=== PATIENT | female | born 1950 | race Caucasian/White ===

== ENCOUNTER 2018-06-14 19:42 | Inpatient (IN) | payer MEDICARE, OTHER ==
[~2018-06-14] VITALS: Ht 154.9 cm; Wt 66.7 kg
[2018-06-14] MEDS ORDERED: FLUV100T3 PO (20:31)
[2018-06-14] MEDS ORDERED: CLON1TAB5 PO (20:31)
[2018-06-14] MEDS ORDERED: ESCI20TA37 PO (20:31)
[2018-06-14] MEDS ORDERED: CLON-418 PO (20:31)
[2018-06-14] MEDS ORDERED: LAMO150T PO (20:31)
[2018-06-14] MEDS ORDERED: LEVO500T2 PO (20:36)
--- NOTE | 2018-06-14 21:18 | NUR ---
Pt. admitted to MHU, under care of Dr. TIM/MERCEDEZ. Diagnosis: Psychosis Belongs List completed. MRSA swab done. report given to Cate KIM.
--- NOTE | 2018-06-14 21:50 | NUR ---
67 Y.O FEMALE BROUGHT TO MHU VIA WHEELCHAIR FROM [facility]. PT ADMITTED IN A 5150 FOR GD. ACCORDING TO THE HOLD, PT MEETING CRITERIA OF UNABLE TO DO SELF-CARE ON HER HOME WHERE SHE LIVES ALONE. RN CONCURS WITH THE HOLD. ADVISEMENT AND PATIENT RIGHTS HANDBOOK GIVEN. UPON FACE TO FACE ASSESSMENT. PT APPEARS TO REFLECT WHAT IS ON THE HOLD. PT IS A+OX2, AND COOPERATIVE WITH ASSESSMENT. PT CRYING DURING THE INTERVIEW AND WOULD SMILE AND GIGGLE . PT AGREED TO CONTRACT FOR SAFETY INSIDE THE HOSPITAL. PT GAVE VERBAL PERMISSION AND ALSO SIGNED THE PAPER TO RICHARD DOUGHERTY AND MACIEJ DOUGHERTY. PT EXHIBITS INCONGRUENT AFFECT, POOR EYE CONTACT. PT APPEARS UNKEMPT AND HER SKIN IS INTACT. AND DR.OLEG OCONNELL NOTIFIED OF ADMISSION,ORDERS RECEIVED.MCC ASSESSMENT DONE. PT ORIENTED TO UNIT AND EDUCATED ON UNIT RULES. CONTRABAND (MEDICATION )SENT TO THE PHARMACY. HER [place] ID IS ON OUR SECURITY LOCKER IN THE UNIT. VS STABLE. NO AGGRESSIVE BEHAVIOR.
[2018-06-14] MEDS ORDERED: MAGNESIUM HYDROXIDE 30 ML LIQUID UDC PO PRN (22:15)
[2018-06-14] MEDS ORDERED: MAG HYDROX/AL HYDROX/SIMETH 30 ML LIQUID UDC PO PRN (22:15)
[2018-06-14] MEDS: CLONAZEPAM 0.5 MG TABLET PO PRN (23:04)
[2018-06-15] MEDS: TEMAZEPAM 7.5 MG CAPSULE PO PRN (00:18)
[2018-06-15 04:00] VITALS: BP 148/52
[2018-06-15] MEDS: CLONAZEPAM 0.5 MG TABLET PO PRN (06:28)
--- NOTE | 2018-06-15 06:42 | NUR ---
PT SLEPT 5 HOURS. PT SHOWS NO SIGNS OF DISTRESS. PRESCRIBED MEDICATION GIVEN AND PT TOLERATED IT WELL.PT COOPERATIVE WITH CARE. PT SHOWING CRYING AND THEN SMILING. PT NEEDS REORIENTATION, REDIRECTION AND DISTRACTION. SAFETY AND COMFORT PROVIDED. WILL ENDORSE TO DAYSHIFT NURSE FOR CONTINUITY OF CARE .
[2018-06-15 07:30] VITALS: BP 119/57
[2018-06-15] MEDS ORDERED: LAMOTRIGINE 100 MG TABLET PO SCH (10:30)
[2018-06-15] MEDS ORDERED: Medication Not On Formulary EA (Lamotrigine 1 TAB) PO SCH (10:30)
[2018-06-15] MEDS ORDERED: FLUVOXAMINE MALEATE 150 MG PO SCH (15:00)
--- NOTE | 2018-06-15 15:20 | NUR ---
Initial Discharge Note: Patient currently lives alone in [facility][[address] [place] [address]]. According to the daughter, Hilaria [[phone]], the patient has a "caregiver" who checks in on patient whom also lives in [facility]. Per patient, she would like to return to her home when ready for discharge. Per PT evaluation, patient may benefit from a SNF or home health if returning home. developmental services worker will continue to monitor patient and follow-up with PT on best plan for discharge. developmental services worker will collaborate with patient, patient daughter, and MD on a safe and proper discharge.
--- NOTE | 2018-06-15 16:05 | NUR ---
Activity Group Note: Patients engaged in listening to music of their choice while coloring a picture print available to them. Patients were asked to engage with their peers to discuss the music or their pictures. Subjective: "I like this song....I like a lot of different artists like Arielle Gillis." Objective: Patient seemed eager to participate in the group activity. She engaged and initiated conversation with her peers. Patient asked to see other patient's work. Patient demonstrated some irritability when several patients were talking at the same time. Assessment: Patient will need assistance in developing coping strategies when she cannot control her surroundings. Plan: Encourage group attendance as scheduled. Engineering Recruiter will continue to provide encouragement and support in helping the patient engage in group activities.
[2018-06-15 16:10] VITALS: BP 115/49
[2018-06-15] MEDS ORDERED: Medication Not On Formulary EA (Clonidine HCl (Clonidine HCl ER) 0.1 MG) PO SCH (17:00)
[2018-06-15] MEDS: CLONIDINE HCL 0.1 MG TABLET PO SCH (17:00)
[2018-06-15] MEDS ORDERED: IPRATROPIUM BROMIDE 0.5 MG/2.5 ML NEBU NEB PRN (17:30)
[2018-06-15] MEDS ORDERED: ALBUTEROL SULFATE 2.5 MG/3 ML NEBU NEB PRN (17:30)
[2018-06-15 21:41] VITALS: BP 116/56
[2018-06-16] MEDS: ACETAMINOPHEN 325 MG TABLET PO PRN (03:11)
[2018-06-16 06:53] LABS: BASOPHILS % (AUTO) 0.7 % (0.0-2.0); EOSINOPHILS # (AUTO) 0.2 K/uL (0.0-0.7); HEMATOCRIT 36.8 % (31.2-41.9); HEMOGLOBIN 12.1 g/dL (10.9-14.3); LYMPHOCYTES # (AUTO) 2.1 K/uL (20.0-40.0); LYMPHOCYTES % (AUTO) 34.1 % (20.5-51.5); MEAN CORPUSCULAR HEMOGLOBIN 27.9 uug (24.7-32.8); MEAN CORPUSCULAR HGB CONC 33 g/dL (32.3-35.6); MEAN CORPUSCULAR VOLUME 84.8 fL (75.5-95.3); MONOCYTES # (AUTO) 0.4 K/uL (2.0-10.0); MONOCYTES % (AUTO) 6.3 % (0.0-11.0); NEUTROPHILS # (AUTO) 3.4 K/uL (1.8-8.9); NEUTROPHILS % (AUTO) 55.9 % (38.5-71.5); PLATELET COUNT (AUTO) 408 K/uL (179-408); RED BLOOD CELL COUNT(AUTO) 4.34 MIL/uL (3.63-4.92); WHITE BLOOD COUNT (AUTO) 6.1 K/uL (3.8-11.8)
[2018-06-16 07:11] LABS: BILIRUBIN,TOTAL 0.4 mg/dL (0.2-1.0); CREATININE 1.1 mg/dL (0.6-1.3); MAGNESIUM 2.2 mg/dL (1.8-2.4); PHOSPHOROUS 3.3 mg/dL (2.5-4.9); POTASSIUM 4.2 mmol/L (3.5-5.1); TOTAL PROTEIN, SERUM 6.8 g/dL (6.4-8.2)
[2018-06-16 07:20] LABS: THYROID STIMULATING HORMONE 1.883 mIU/mL (0.358-3.740)
[2018-06-16 07:30] VITALS: BP 117/54
[2018-06-16] MEDS: FLUVOXAMINE MALEATE 50 MG TABLET PO SCH (08:47)
[2018-06-16] MEDS: CLONIDINE HCL 0.1 MG TABLET PO SCH ×2 (08:48→17:00)
[2018-06-16] MEDS ORDERED: LEVOFLOXACIN 500 MG TABLET PO SCH (09:00)
[2018-06-16] MEDS ORDERED: AZITHROMYCIN 250 MG TABLET PO ONE (11:45)
[2018-06-16 16:14] VITALS: BP_SYST 107
[2018-06-16 19:53] VITALS: BP 103/36
--- NOTE | 2018-06-16 20:00 | NUR ---
RECEIVED PATIENT IN THE HALLWAY, HE IS NOTED A/O X 3. SHE IS ABLE TO AMBULATE WITH STEADY GAIT WITH THE AID OF A WALKER. SHE IS NOTED WITH LOW MOOD, BLUNTED AFFECT. SHE DENIES ANY THOUGHT TO HARM SELF, DENIES HI. DENIES AH/VH. SHE IS NOTED WITH FAIR INSIGHT TO THE REASON FOR HER ADMISSION TO MHU. SAFETY WAS EMPHASIS, WILL CONTINUE TO MONITOR.
[2018-06-16] MEDS: LAMOTRIGINE 100 MG TABLET PO SCH (20:37)
[2018-06-17 07:30] VITALS: BP 113/56
[2018-06-17] MEDS: FLUVOXAMINE MALEATE 50 MG TABLET PO SCH (08:28)
[2018-06-17] MEDS: CLONIDINE HCL 0.1 MG TABLET PO SCH ×2 (08:28→16:53)
[2018-06-17] MEDS: AZITHROMYCIN 250 MG TABLET PO SCH (12:05)
[2018-06-17] MEDS: ACETAMINOPHEN 325 MG TABLET PO PRN ×2 (12:10→19:56)
[2018-06-17 15:48] VITALS: BP 103/26
[2018-06-17 16:14] VITALS: BP 101/45
--- NOTE | 2018-06-17 16:23 | NUR ---
Activity Group Note: GOAL Patient will actively participate in the group activity of the day or relax in the activity room with fellow patients. INTERVENTION Salesperson Furs invited patient to participate in a group activity consisting of music, books puzzles and arts & crafts held from 2 -2:45 pm in the activities room. RESPONSE Patient expressed interest in participating in arts and crafts. Patient stated she wanted a large picture to color, as it is hard for her to see. Pt engaged in a coloring activity. Patient had minimal interaction with peers. Patients mood was within normal limits and remained cooperative during the activity. PLAN Patient will be invited to attend the next group activity.
--- NOTE | 2018-06-17 17:48 | NUR ---
Patient felt much better after c/o lower back pain. Prn medication administered x1 with relief. Call light within reach. No SI noted. Call light within reach. will monitor.
[2018-06-17] MEDS: CLONAZEPAM 0.5 MG TABLET PO PRN (19:51)
[2018-06-17 19:58] VITALS: BP 108/30
[2018-06-17] MEDS: LAMOTRIGINE 100 MG TABLET PO SCH (20:04)
[2018-06-18 07:30] VITALS: BP 125/46
[2018-06-18] MEDS: FLUVOXAMINE MALEATE 50 MG TABLET PO SCH (08:13)
[2018-06-18] MEDS: CLONIDINE HCL 0.1 MG TABLET PO SCH ×2 (08:14→16:19)
[2018-06-18] MEDS: AZITHROMYCIN 250 MG TABLET PO SCH (11:00)
--- NOTE | 2018-06-18 15:10 | NUR ---
Patient is compliant with all her medication. Redirectable. Able to express needs. Call light within reach. No SI noted. Attended group activity. Bed in low and locked position.
[2018-06-18 15:17] VITALS: BP 110/46
[2018-06-18 20:03] VITALS: BP 114/51
[2018-06-18] MEDS: LAMOTRIGINE 100 MG TABLET PO SCH (21:13)
--- NOTE | 2018-06-19 05:27 | NUR ---
Pt is A & O x3, calm, cooperative, med-compliant, cognizant, pt expresses concern about still having her part-time job once she is released from the hospital. Pt also expresses concern about not being on her home meds, consisting of lexapro and other medications. Pt is afraid that she will decompensate to her past OCD behavior because she is off of her home meds. I will endorse to day shift nurse to f/u.
[2018-06-19 07:52] VITALS: BP 127/49
[2018-06-19] MEDS: ACETAMINOPHEN 325 MG TABLET PO PRN (08:02)
[2018-06-19] MEDS: FLUVOXAMINE MALEATE 50 MG TABLET PO SCH (08:02)
[2018-06-19] MEDS: CLONIDINE HCL 0.1 MG TABLET PO SCH ×2 (08:02→17:13)
[2018-06-19] MEDS: AZITHROMYCIN 250 MG TABLET PO SCH (11:01)
[2018-06-19] MEDS: DOCUSATE SODIUM 100 MG CAPSULE PO PRN (14:40)
[2018-06-19 15:38] VITALS: BP 139/66
[2018-06-19 20:11] VITALS: BP 114/47
[2018-06-19] MEDS: LAMOTRIGINE 100 MG TABLET PO SCH (21:08)
[2018-06-19 23:47] LABS: *BILIRUBIN,URIN NEGATIVE (NEGATIVE); *BLOOD, URINE Trace-intact (NEGATIVE); *CLARITY,URINE CLEAR (CLEAR); *COLOR,URINE YELLOW (YELLOW); *KETONES,URINE NEGATIVE (NEGATIVE); *PROTEIN,URINE NEGATIVE (NEGATIVE); *UROBILINOGEN,URINE 0.2 E.U./dl (NORMAL); LEUKOCYTE ESTERASE ,URINE NEGATIVE (NEGATIVE); NITRITE, URINE NEGATIVE (NEGATIVE); UGLUCOSE NEGATIVE (NEGATIVE)
[2018-06-20 00:05] LABS: BACTERIA,URINE NONE SEEN /HPF (NONE SEEN); RBC,URINE 0-3 /HPF (0-3); RENAL EPITHELIAL CELLS,URINE FEW /LPF (NONE SEEN); SQUAMOUS EPITHELIAL CELL,UR MODERATE /HPF (NONE SEEN); TRANSITIONAL EPI CELLS,URINE FEW /LPF (NONE SEEN); WBC,URINE 0-3 /HPF (0-3)
[2018-06-20 07:30] VITALS: BP 132/50
[2018-06-20 08:07] LABS: BASOPHILS # (AUTO) 0.1 K/uL (0.0-8.0); BASOPHILS % (AUTO) 1.3 % (0.0-2.0); EOSINOPHILS # (AUTO) 0.2 K/uL (0.0-0.7); EOSINOPHILS % (AUTO) 3.5 % (0.0-7.0); HEMATOCRIT 38.4 % (31.2-41.9); HEMOGLOBIN 12.4 g/dL (10.9-14.3); LYMPHOCYTES # (AUTO) 2.4 K/uL (20.0-40.0); LYMPHOCYTES % (AUTO) 41.1 % (20.5-51.5); MEAN CORPUSCULAR HEMOGLOBIN 27.6 uug (24.7-32.8); MEAN CORPUSCULAR HGB CONC 32 g/dL (32.3-35.6); MEAN CORPUSCULAR VOLUME 85.2 fL (75.5-95.3); MONOCYTES # (AUTO) 0.3 K/uL (2.0-10.0); NEUTROPHILS # (AUTO) 2.9 K/uL (1.8-8.9); NEUTROPHILS % (AUTO) 49.1 % (38.5-71.5); PLATELET COUNT (AUTO) 306 K/uL (179-408); RED BLOOD CELL COUNT(AUTO) 4.51 MIL/uL (3.63-4.92); WHITE BLOOD COUNT (AUTO) 5.9 K/uL (3.8-11.8)
[2018-06-20 08:18] LABS: CREATININE 0.9 mg/dL (0.6-1.3); PHOSPHOROUS 3.3 mg/dL (2.5-4.9); POTASSIUM 4.2 mmol/L (3.5-5.1)
[2018-06-20] MEDS: CLONIDINE HCL 0.1 MG TABLET PO SCH ×2 (09:37→17:00)
[2018-06-20] MEDS: FLUVOXAMINE MALEATE 50 MG TABLET PO SCH (09:37)
[2018-06-20] MEDS: AZITHROMYCIN 250 MG TABLET PO SCH (12:57)
--- NOTE | 2018-06-20 15:31 | NUR ---
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
[2018-06-20 16:00] VITALS: BP 100/53
[2018-06-20 20:00] VITALS: BP 116/47
--- NOTE | 2018-06-20 20:00 | NUR ---
RECEIVED PATIENT IN THE DAY ROOM WATCHING TV. SHE IS NOTED A/O X 3. SHE IS ABLE TO AMBULATE WITH STEADY GAIT. DENIES SI, DENIES AV/VH SHE IS ABLE TO CFS. SAFETY WAS EMPHASIS. WILL CONTINUE TO MONITOR,
[2018-06-20] MEDS: LAMOTRIGINE 100 MG TABLET PO SCH (21:05)
[2018-06-21] MEDS: TEMAZEPAM 7.5 MG CAPSULE PO PRN (00:03)
[2018-06-21 07:30] VITALS: BP 108/49
[2018-06-21] MEDS: FLUVOXAMINE MALEATE 50 MG TABLET PO SCH (08:11)
[2018-06-21] MEDS: ACETAMINOPHEN 325 MG TABLET PO PRN (08:12)
[2018-06-21 08:49] VITALS: BP 108/49
[2018-06-21] MEDS: CLONIDINE HCL 0.1 MG TABLET PO SCH (08:49)
--- NOTE | 2018-06-21 11:36 | NUR ---
Discharge Note: Patient will be discharged back home today [[address], [address] [place] [address]; [phone]] via private transportation at 2pm. Patients friend, Carrie Ponce ([phone]) will be providing transportation for the patient. Spoke with patients daughter, Hilaria ([phone]) who is aware and agreeable with discharge plans. Patient is alert and oriented x3, denies SI/HI, and is agreeable with discharge plans. Patient will continue to follow-up with her Primary Care Physician, Dr. Jonathan Cardenas [[address] [place] [address]; [phone]]. Patient will also continue to follow-up with her outpatient Psychiatrist, Dr. Jimmie Olivia [[address], [place] [address]; [phone]]. Per request, pt was provided with a list of Medicare-accepting Psychiatrists in her area. A Home Health Order for home safety evaluation, medication management, and [facility] (ph. [phone]; fax [phone]). Spoke with Laurie in intake, and she reports she will call this specifications writer about patients acceptance and start of care date. Patient was provided with outpatient mental health resources to [facility] , Elli Leon , and the National Suicide Prevention Lifeline . Addendum: 06/21/18 at 1213 by ALLISON MENDOZA Received call from Laurie rizzo [facility] ([phone]) who stated that patient was accepted for Home Health with a Start of Care on 06/22/18.
[2018-06-21] MEDS: DOCUSATE SODIUM 100 MG CAPSULE PO PRN (13:38)
--- NOTE | 2018-06-21 15:00 | NUR ---
Pt is being discharged home and being picked up by her friend Carrie Rodriguez. Pt is A./O x 4, agreeing to go. No distress noted. Discharge instructions are given including following up with a psychiatrist. Pt verbalizes understanding.
--- NOTE | 2018-06-23 15:02 | NUR ---
Social Service Note: crop supervisor, Pearl, received a voicemail left by the patient stating that she "needed to speak with her psychiatrist" and that it was an "emergency". Pearl relayed message to , who called patient back at home phone number [[phone]]. Data Quality Consultant was unable to reach patient, but left a voicemail with direct phone number for patient to call back. Data Quality Consultant also instructed patient to go to emergency room if she was in fact experiencing a medical or psychiatric emergency.
== END 2018-06-21 15:00 | disposition home health service (06) | DRG 885 ==
LOC: ER 19:45 → GPS 21:26
PROVIDERS: ADMIT Psychiatry & Neurology Psychiatry; ATTEND Internal Medicine
DX: F31.64 Bipolar disorder, current episode mixed, severe, with psychotic features (principal); E44.0 Moderate protein-calorie malnutrition; F42.9 Obsessive-compulsive disorder, unspecified; Z87.01 Personal history of pneumonia (recurrent); Z68.27 Body mass index [BMI] 27.0-27.9, adult; F41.9 Anxiety disorder, unspecified; K59.00 Constipation, unspecified; R73.03 Prediabetes
CPT/HCPCS: 36415; 71045; 83735; 84100; 84443; 85025; 87086; A4663; Q0144

== ENCOUNTER 2019-10-02 10:34 | Inpatient (IN) | payer MEDICARE, OTHER ==
[~2019-10-02] VITALS: Ht 160 cm; Wt 72.6 kg
[2019-10-02] MEDS ORDERED: ONDANSETRON 4 MG/2 ML VIAL IV ONE (10:45)
[2019-10-02] MEDS ORDERED: IV NORMAL SALINE 1000 ML BAG IV ONE (10:45)
[2019-10-02] MEDS ORDERED: MECLIZINE HCL 25 MG TABLET PO ONE (10:45)
--- NOTE | 2019-10-02 10:52 | NUR ---
MEDICATION LIST PER PT RECALL.
[2019-10-02 11:15] LABS: BASOPHILS % (AUTO) 0.4 % (0.0-2.0); EOSINOPHILS % (AUTO) 0.2 % (0.0-7.0); HEMATOCRIT 37.2 % (31.2-41.9); HEMOGLOBIN 12.3 g/dL (10.9-14.3); LYMPHOCYTES # (AUTO) 0.9 K/uL (20.0-40.0); LYMPHOCYTES % (AUTO) 7.6 % (20.5-51.5); MEAN CORPUSCULAR HEMOGLOBIN 27.8 uug (24.7-32.8); MEAN CORPUSCULAR HGB CONC 33 g/dL (32.3-35.6); MEAN CORPUSCULAR VOLUME 84.1 fL (75.5-95.3); MONOCYTES # (AUTO) 0.3 K/uL (2.0-10.0); MONOCYTES % (AUTO) 2.8 % (0.0-11.0); NEUTROPHILS # (AUTO) 10.7 K/uL (1.8-8.9); PLATELET COUNT (AUTO) 222 K/uL (179-408); RED BLOOD CELL COUNT(AUTO) 4.42 MIL/uL (3.63-4.92)
[2019-10-02 11:22] LABS: CREATININE 1.1 mg/dL (0.6-1.3); POTASSIUM 3.6 mmol/L (3.5-5.1)
[2019-10-02 11:27] LABS: BILIRUBIN,TOTAL 0.3 mg/dL (0.2-1.0); TOTAL PROTEIN, SERUM 7.5 g/dL (6.4-8.2)
[2019-10-02] MEDS ORDERED: DIAZEPAM 10 MG/2 ML DISP.SYRIN IV ONE (11:45)
[2019-10-02] MEDS ORDERED: MECLIZINE HCL 25 MG TABLET ONE (11:51)
[2019-10-02] MEDS ORDERED: DIAZEPAM 2 MG TABLET ONE (11:52)
[2019-10-02] MEDS ORDERED: ONDANSETRON 4 MG/2 ML VIAL ONE (11:52)
[2019-10-02] MEDS ORDERED: ASPIRIN 325 MG TABLET ONE (11:57)
[2019-10-02] MEDS ORDERED: DIAZEPAM 2 MG TABLET PO ONE (12:00)
[2019-10-02] MEDS ORDERED: ASPIRIN 325 MG TABLET PO ONE (12:00)
--- NOTE | 2019-10-02 12:03 | NUR ---
Paged [employer] for pt's admin, awaiting call back.
--- NOTE | 2019-10-02 12:32 | NUR ---
TRANSFERED PT TO FLOOR INSTABLE CONDITION.
[2019-10-02 12:41] VITALS: BP 101/54
[2019-10-02] MEDS ORDERED: ONDANSETRON 4 MG/2 ML VIAL IV PRN (14:30)
[2019-10-02] MEDS ORDERED: MAGNESIUM HYDROXIDE 30 ML LIQUID UDC PO PRN (14:30)
[2019-10-02] MEDS ORDERED: Z GUARD REMEDY PASTE 57 GM TUBE TOP PRN (14:30)
[2019-10-02 15:55] LABS: PHOSPHOROUS 2.7 mg/dL (2.5-4.9)
[2019-10-02 16:02] LABS: *BILIRUBIN,URIN NEGATIVE (NEGATIVE); *CLARITY,URINE CLEAR (CLEAR); *COLOR,URINE YELLOW (YELLOW); *KETONES,URINE NEGATIVE (NEGATIVE); *UROBILINOGEN,URINE 0.2 E.U./dl (NORMAL); LEUKOCYTE ESTERASE ,URINE NEGATIVE (NEGATIVE); NITRITE, URINE NEGATIVE (NEGATIVE); PH,URINE 5.5 (5.0-8.0); UGLUCOSE NEGATIVE (NEGATIVE)
[2019-10-02 16:03] LABS: *BLOOD, URINE NEGATIVE (NEGATIVE)
[2019-10-02 16:05] VITALS: BP 125/66
[2019-10-02 16:11] LABS: *AMPHETAMINE, URINE NEGATIVE (NEGATIVE); *BARBITURATE, URINE NEGATIVE (NEGATIVE); *CANNABINOID, URINE NEGATIVE (NEGATIVE); *COCCAINE, URINE NEGATIVE (NEGATIVE); *OPIATE, URINE NEGATIVE (NEGATIVE); *PHENCYCLIDINE SCREEN,URINE NEGATIVE (NEGATIVE)
--- NOTE | 2019-10-02 19:12 | NUR ---
Patient received from ER around 1240 patient in stable condition with stable vital signs; patient family at bedside towards end of shift ; patient very shaky ; Md notified ; strait cath done for urine sample. admission finished. Report given on coming nurse.
--- NOTE | 2019-10-02 19:45 | NUR ---
PATIENT ALERT ORIENTED NO SOB NO CHEST PAIN, TELE MONITOR SINUS RHYTHM, SINUS TACHY. PATIENT HAS ANXIETY MB RESTLESSNESS WHILE IN BED, PATIENT GIVEN FOOD AND JUICES, KEPT CLEAN AND DRY, CONT TO MONITOR.
[2019-10-02] MEDS: ACETAMINOPHEN 325 MG TABLET PO PRN (20:03)
[2019-10-02] MEDS: IV NS 1000 ML 1,000 ML IV PRN (20:29)
[2019-10-02] MEDS: ATORVASTATIN 10 MG TABLET PO SCH (20:34)
[2019-10-02] MEDS: METOPROLOL TARTRATE 25 MG TABLET PO SCH (20:51)
[2019-10-02 20:52] VITALS: BP 112/66
[2019-10-02] MEDS ORDERED: LAMOTRIGINE 25 MG TABLET PO SCH (21:00)
[2019-10-02] MEDS ORDERED: LAMOTRIGINE 200 MG TABLET PO SCH (21:00)
--- NOTE | 2019-10-02 22:18 | NUR ---
PATIENT HAVING LOTS OF ANXIETY, RESTLESSNESS IN BED, NOTIFY CHRISTINE CERVANTES CHEMICALS FERMENTATION OPERATOR WITH ORDER OF ATIVAN IV PRN.
[2019-10-02] MEDS: LORAZEPAM 2 MG/1 ML VIAL IV PRN (22:29)
[2019-10-03] VITALS (8 sets, daily range): BP systolic 95–117; BP diastolic 46–62
[2019-10-03] MEDS: ACETAMINOPHEN 325 MG TABLET PO PRN (05:56)
[2019-10-03] MEDS: PANTOPRAZOLE SODIUM 40 MG TABLET.DR PO SCH (06:58)
[2019-10-03 07:17] LABS: BASOPHILS # (AUTO) 0.1 K/uL (0.0-8.0); BASOPHILS % (AUTO) 0.5 % (0.0-2.0); BILIRUBIN,TOTAL 0.6 mg/dL (0.2-1.0); EOSINOPHILS % (AUTO) 0.2 % (0.0-7.0); HEMATOCRIT 35.1 % (31.2-41.9); HEMOGLOBIN 11.6 g/dL (10.9-14.3); LYMPHOCYTES # (AUTO) 1.8 K/uL (20.0-40.0); LYMPHOCYTES % (AUTO) 16.9 % (20.5-51.5); MEAN CORPUSCULAR HEMOGLOBIN 28.1 uug (24.7-32.8); MEAN CORPUSCULAR HGB CONC 33 g/dL (32.3-35.6); MEAN CORPUSCULAR VOLUME 85.2 fL (75.5-95.3); MONOCYTES # (AUTO) 0.6 K/uL (2.0-10.0); MONOCYTES % (AUTO) 5.5 % (0.0-11.0); NEUTROPHILS # (AUTO) 8.3 K/uL (1.8-8.9); NEUTROPHILS % (AUTO) 76.9 % (38.5-71.5); PHOSPHOROUS 2.7 mg/dL (2.5-4.9); PLATELET COUNT (AUTO) 197 K/uL (179-408); POTASSIUM 3.8 mmol/L (3.5-5.1); RED BLOOD CELL COUNT(AUTO) 4.12 MIL/uL (3.63-4.92); TOTAL PROTEIN, SERUM 6.9 g/dL (6.4-8.2); WHITE BLOOD COUNT (AUTO) 10.8 K/uL (3.8-11.8)
--- NOTE | 2019-10-03 08:00 | NUR ---
AWAKE ALERT AND RESPOND APPROPRIATELY ONLY TO SIMPLE QUESTIONS. GETS CONFUSED ON AND OFF AND TRYING TO GET OUT OF BED. OBSERVED.
[2019-10-03] MEDS: ASPIRIN EC 81 MG TABLET.DR PO SCH (08:46)
[2019-10-03] MEDS: LISINOPRIL 5 MG TABLET PO SCH (08:50)
[2019-10-03] MEDS: METOPROLOL TARTRATE 25 MG TABLET PO SCH ×2 (08:50→20:54)
[2019-10-03] MEDS ORDERED: ESCITALOPRAM OXALATE 10 MG TABLET PO SCH ×2 (09:00→12:00)
[2019-10-03] MEDS ORDERED: ESCITALOPRAM OXALATE PO SCH (09:00)
[2019-10-03] MEDS: IV NS 1000 ML 1,000 ML IV PRN ×2 (09:05→22:37)
[2019-10-03 10:31] LABS: THYROID STIMULATING HORMONE 1.571 mIU/mL (0.358-3.740)
--- NOTE | 2019-10-03 11:53 | NUR ---
SEEN BY Denny HAYS WATERWORKS SUPERVISOR FOR FOLLOW-UP RECOMMEND PSYCH AND NEURO CONSULT.
[2019-10-03] MEDS ORDERED: HOME MED MISCELLANEOUS XX SCH (12:00)
[2019-10-03] MEDS ORDERED: DEXTROSE 50% 50 ML DISP.SYRIN IV PRN (12:00)
--- NOTE | 2019-10-03 13:00 | NUR ---
PATIENT ALWAYS TRYING TO GET OUT OF BED, PLACED PATIENT TO ROOM 311 CLOSER TO NURSING STATION FOR SAFETY
[2019-10-03] MEDS: LAMOTRIGINE 200 MG TABLET PO SCH ×2 (14:28→20:49)
[2019-10-03] MEDS: BLOOD SUGAR DIAGNOSTIC 1 EACH STRIP VI SCH ×2 (16:53→22:16)
--- NOTE | 2019-10-03 17:49 | NUR ---
SEEN BY NEURO FORENSIC AUDIT EXPERT FOR EVAL SEE NOTES. AWAITING ALSO DR TIM FOR PSYCH CONSULT.
--- NOTE | 2019-10-03 19:00 | NUR ---
PATIENT ALERT, NO SOB NO CHEST PAIN NOTED, TELE MONITOR SINUS RYTHYM AT THIS TIME. PATIENT NOTED WITH RESTLESSNESS IN BED, KEPT PATIENT CLEAN DRY AND COMFORTABLE, CALL LIGHT WITHIN REACH. CONT TO MONITOR.
[2019-10-03] MEDS: ATORVASTATIN 10 MG TABLET PO SCH (20:49)
[2019-10-03] MEDS: FLUVOXAMINE MALEATE 50 MG TABLET PO SCH (20:54)
[2019-10-03] MEDS: LORAZEPAM 2 MG/1 ML VIAL IV PRN (22:29)
[2019-10-04] MEDS: HYDROCODONE/APAP 5-325MG TABLET PO PRN ×2 (00:47→22:57)
[2019-10-04 01:11] VITALS: BP 132/56
--- NOTE | 2019-10-04 01:44 | NUR ---
PATIENT COMPLAIN OF LOWER ABDOMINAL PAIN, SCAN PATIENT BLADDER WITH 800CC URINE ON THE BLADDER, NOTIFY ANSHUL LIMON URBAN DESIGNER WITH ORDER TO INSERT MAHER CATH FOR BLADDER RETENTION. NOTIFY PATIENT AND PATIENT AGREE. PLACED MAHER CATH WITH 650CC URINE OBTAIN YELLOW/LENIN COLOR OBTAINED, CONT TO MONITOR.
[2019-10-04] MEDS: PANTOPRAZOLE SODIUM 40 MG TABLET.DR PO SCH (06:39)
[2019-10-04] MEDS: BLOOD SUGAR DIAGNOSTIC 1 EACH STRIP VI SCH ×4 (06:46→20:49)
--- NOTE | 2019-10-04 07:25 | NUR ---
PATIENT ALERT WITH CONFUSION, NO SOB NO CHEST PAIN. TELE MONITOR SINUS RHYTHM. PATIENT MAHER CATH PATENT DRAINING YELLOW COLOR URINE. PATIENT HAS EPISODE OF ANXIETY RESTLESS IN BED, GIVEN ATIVAN ORDERED WITH SOME HELP, PATIENT GIVEN PAIN MEDS WITH HELP, ABDOMEN SOFT. WILL CALL FAMILY FOR CONSENT CTA OF THE BRAIN AND CAROTED. ENDORSE TO NEXT SHIFT.
[2019-10-04] MEDS ORDERED: SWABABLE VALVE TRANSFER SET EA MC ONE (07:51)
[2019-10-04] MEDS ORDERED: IV NORMAL SALINE 250 ML IV ONE (07:51)
[2019-10-04] MEDS ORDERED: IOHEXOL 350 100 ML INFUS..BTL ONE (07:51)
--- NOTE | 2019-10-04 08:07 | NUR ---
patient to radiology for ct brain and carotid via bed
[2019-10-04 08:39] VITALS: BP 124/54
--- NOTE | 2019-10-04 09:09 | NUR ---
called Dr. Santiago Negron for pain mgt consult. Left message to Belinda, division officer weapons department, and awaiting call back. seen by physical therapy for eval and will follow-up for further therapy. Addendum: 10/04/19 at 1142 by MELVIN TERAN RN ERROR
[2019-10-04] MEDS: ASPIRIN EC 81 MG TABLET.DR PO SCH (09:12)
[2019-10-04] MEDS: METOPROLOL TARTRATE 25 MG TABLET PO SCH (09:12)
[2019-10-04] MEDS: ACETAMINOPHEN 325 MG TABLET PO PRN ×2 (09:12→20:43)
[2019-10-04] MEDS: ESCITALOPRAM OXALATE 10 MG TABLET PO SCH (09:13)
[2019-10-04] MEDS: LISINOPRIL 5 MG TABLET PO SCH (09:13)
[2019-10-04] MEDS: LAMOTRIGINE 200 MG TABLET PO SCH ×2 (09:17→21:00)
[2019-10-04 11:05] VITALS: BP 125/60
--- NOTE | 2019-10-04 11:42 | NUR ---
SEEN BY LIZETTE HAYS FOR FOLLOW-UP, NOTED PATIENT IS MORE CONFUSED AND RESTLESS AT THIS TIME. FOLLOW-UP LABS AND ALSO LACTIC ACID ORDERED. WHEN TRIED TO WEAN OFF TO ROOM AIR, PATIENT DESATURATED TO 82%. O2 AT 2L RE-ADMINISTERED
[2019-10-04 11:46] LABS: BASOPHILS # (AUTO) 0.1 K/uL (0.0-8.0); BASOPHILS % (AUTO) 0.8 % (0.0-2.0); EOSINOPHILS # (AUTO) 0.1 K/uL (0.0-0.7); EOSINOPHILS % (AUTO) 0.5 % (0.0-7.0); HEMATOCRIT 34.1 % (31.2-41.9); HEMOGLOBIN 11.1 g/dL (10.9-14.3); LYMPHOCYTES % (AUTO) 15.8 % (20.5-51.5); MEAN CORPUSCULAR HEMOGLOBIN 27.6 uug (24.7-32.8); MEAN CORPUSCULAR HGB CONC 33 g/dL (32.3-35.6); MONOCYTES # (AUTO) 0.7 K/uL (2.0-10.0); MONOCYTES % (AUTO) 5.8 % (0.0-11.0); NEUTROPHILS # (AUTO) 9.6 K/uL (1.8-8.9); NEUTROPHILS % (AUTO) 77.1 % (38.5-71.5); PLATELET COUNT (AUTO) 186 K/uL (179-408); RED BLOOD CELL COUNT(AUTO) 4.01 MIL/uL (3.63-4.92); WHITE BLOOD COUNT (AUTO) 12.5 K/uL (3.8-11.8)
[2019-10-04] MEDS: LORAZEPAM 2 MG/1 ML VIAL IV PRN (11:59)
[2019-10-04 12:12] LABS: BILIRUBIN,TOTAL 0.5 mg/dL (0.2-1.0); CREATININE 0.9 mg/dL (0.6-1.3); MAGNESIUM 1.9 mg/dL (1.8-2.4); PHOSPHOROUS 1.9 mg/dL (2.5-4.9); POTASSIUM 3.4 mmol/L (3.5-5.1); TOTAL PROTEIN, SERUM 6.5 g/dL (6.4-8.2)
[2019-10-04 15:33] VITALS: BP 101/40
[2019-10-04] MEDS ORDERED: NEUTRA PHOS PACKET PO ONE (15:45)
--- NOTE | 2019-10-04 16:30 | NUR ---
SEEN BY DR GAN REVIEWED MEDS AND STOP ATIVAN AND TO HOLD LAMICTAL IF PATIENT IS TOO DROWSY
[2019-10-04] MEDS: IV NS 1000 ML 1,000 ML IV PRN (18:02)
--- NOTE | 2019-10-04 18:44 | NUR ---
SPOKE WITH DR DESAI REGARDING CTA CHEST IN AM AT [place]. RECTIFYING ATTENDANT WILL FOLLOW-UP IN AM. MEANWHILE PATIENT KEPT ON NPO.
--- NOTE | 2019-10-04 18:50 | NUR ---
REMAINS SR ON MONITOR CLOSELY MONITORED
--- NOTE | 2019-10-04 19:30 | NUR ---
RECEIVED PT AWAKE, ALERT AND ORIENTEDX2. PT CAN MAKE HER NEEDS KNOWN. PT COOPERATIVE WITH CARE. PT IN NO ACUTE DISTRESS. IV INTACT. SAFETY AND COMFORT PROVIDED. WILL CONTINUE TO MONITOR.
[2019-10-04 20:00] VITALS: BP 99/48
[2019-10-04] MEDS: ATORVASTATIN 10 MG TABLET PO SCH (20:44)
[2019-10-04] MEDS: FLUVOXAMINE MALEATE 50 MG TABLET PO SCH (20:45)
[2019-10-05] VITALS (9 sets, daily range): BP systolic 93–134; BP diastolic 33–66
[2019-10-05] MEDS ORDERED: CEFTRIAXONE 1 G VIAL ONE ×2 (00:57→22:03)
[2019-10-05] MEDS: CEFTRIAXONE 1 G in IV DEXTROSE 5% 50 ML IV SCH ×2 (01:25→22:12)
[2019-10-05] MEDS: PANTOPRAZOLE SODIUM 40 MG TABLET.DR PO SCH (06:25)
--- NOTE | 2019-10-05 06:25 | NUR ---
PT SLEPT INTERMITTENTLY. PRESCRIBED MEDICATION GIVEN AND PT TOLERATED IT WELL. IV INTACT. DR. TIM SEEN THE PT. MAHER CATHETER INTACT AND DRAINING WELL. PT DIDN'T GET PROTONIX BECAUSE PT IS ON NPO FOR CTA HEART. SAFETY AND COMFORT PROVIDED. ALL NEEDS ARE MET. WILL ENDORSE ACCORDINGLY TO INCOMING NURSE FOR CONTINUITY OF CARE.
[2019-10-05] MEDS: BLOOD SUGAR DIAGNOSTIC 1 EACH STRIP VI SCH ×4 (06:34→21:39)
--- NOTE | 2019-10-05 07:44 | NUR ---
RECEIVED PATIENT IN BED AWAKE, AOX2 TO PERSON AND PLACE. NO SIGNS OF DISTRESS AT THIS TIME. PATIENT DENIES PAIN AT THIS TIME. RIGHT HAND AND RIGHT AC PERIPHERAL LINE INTACT AND FLUSHED. ALL NEEDS MET AT THIS TIME. SAFETY AND FALL PRECAUTIONS IN PLACE CALL LIGHT IN REACH. BED IN LOW AND LOCKED POSITION. WILL CONTINUE TO MONITOR.
[2019-10-05] MEDS: IV NS 1000 ML 1,000 ML IV PRN (08:00)
[2019-10-05] MEDS: LAMOTRIGINE 200 MG TABLET PO SCH (09:00)
[2019-10-05] MEDS ORDERED: LORAZEPAM 1 MG TABLET PO PRN (09:00)
[2019-10-05] MEDS: ESCITALOPRAM OXALATE 10 MG TABLET PO SCH (10:52)
[2019-10-05] MEDS: ASPIRIN EC 81 MG TABLET.DR PO SCH (10:52)
--- NOTE | 2019-10-05 10:54 | NUR ---
PATIENT GIVEN ATIVAN BEFORE THE PROCEDURE CARDIAC CTA PLANED FOR 11 AM BUT TEST WAS RESCHEDULED FOR 2PM. PATIENT IS MILDLY LETHARGIC AND LAMICTAL ON HOLD THIS AM.
[2019-10-05] MEDS: HYDROCODONE/APAP 5-325MG TABLET PO PRN (13:33)
--- NOTE | 2019-10-05 13:45 | NUR ---
PATIENT OFF UNIT FOR SWEATBAND DRUMMER AT [place]. SHEDULED PROCEDURE CARDIAC CTA.
--- NOTE | 2019-10-05 14:33 | NUR ---
UNABLE TO REASSESS PAIN BECAUSE PATIENT IS OFF UNIT FOR CARDIAC CTA AT [facility]
--- NOTE | 2019-10-05 16:00 | NUR ---
NOTIFIED LIZETTE HAYS THAT DR. TIM WAS HERE TO SEE PATIENT BUT THE PATIENT WAS IN PERMIT TECHNICIAN. HE DECIDED TO LEAVE AND STATED THAT HE WILL BE BACK TOMORROW. NURSE WAS UNABLE TO TALK WITH DR. TIM. NURSE WANTED TO KNOW IF PATIENT SHOULD CONTINUE HIS PSYCH MEDS. LIZETTE STATED TO LEAVE HER ORDERS TO CONTINUE PSYCH MEDS IS.
--- NOTE | 2019-10-05 17:15 | NUR ---
PATIENT RETURNED FROM [employer] MEMBER OTHER RANKS IN FAIR CONDITION. AOX2. BP 106/48, HR 68. WILL CONTINUE TO MONITOR.
--- NOTE | 2019-10-05 18:10 | NUR ---
CALLED BANQUET SERVER ON CALL BECAUSE PATIENT BP DROPED 87/42 HR 75. PATIENT RESPONSIVE TO NAME AND WHAT HOSPITAL SHE IS IN . LIZETTE HAYS WAS CALLED. ORDERS GIVEN.
[2019-10-05] MEDS ORDERED: IV NS 1000 ML 1,000 ML IV ONE (19:15)
--- NOTE | 2019-10-05 19:45 | NUR ---
PATIENT ASLEEP BUT AROUSABLE, NO SOB NO CHEST PAIN, BP WAS LOW, WILL GIVE BOLUS NS 1000CC ORDERED. PATIENT HAS NO S/S OF DISTRESS, KEPT HOB LOWERED, CONT TO MONITOR.
--- NOTE | 2019-10-05 20:30 | NUR ---
PATIENT ASLEEP BUT AROUSABLE, BP STABLE 95/56, NO S/S OF DISTRESS CONT TO MONITOR.
[2019-10-05] MEDS: FLUVOXAMINE MALEATE 50 MG TABLET PO SCH (21:33)
[2019-10-06] VITALS: BP 127/66
[2019-10-06] MEDS: IV NS 1000 ML 1,000 ML IV PRN (02:00)
[2019-10-06] MEDS: HYDROCODONE/APAP 5-325MG TABLET PO PRN (03:33)
[2019-10-06] MEDS: PANTOPRAZOLE SODIUM 40 MG TABLET.DR PO SCH (05:45)
[2019-10-06] MEDS: BLOOD SUGAR DIAGNOSTIC 1 EACH STRIP VI SCH ×4 (05:45→20:41)
[2019-10-06 06:17] VITALS: BP 112/54
--- NOTE | 2019-10-06 06:41 | NUR ---
PATIENT ALERT ORIENTED, NO SOB NO CHEST PAIN, TELE MONITOR SINUS RHYTHM AT THIS TIME. PATIENT HAS NO FURTHER COMPLAIN OF BACK AND LEFT THIGH PAIN, MEDICATION FOR PAIN WAS EFFECTIVE, MAHER CATH PATENT DRAINING WITH YELLOW COLOR URINE IN MODERATE AMOUNT. PATIENT HAS COMPLAIN OF DIZZINESS ANYMORE, CONT TO MONITOR.
--- NOTE | 2019-10-06 07:59 | NUR ---
Awake, alert, oriented x 4, denies dizziness. O2 at 2L/NC. Tele SR 71. Bed alarm on
[2019-10-06] MEDS: ESCITALOPRAM OXALATE 10 MG TABLET PO SCH (08:56)
--- NOTE | 2019-10-06 11:00 | NUR ---
Assisted out of bed by PT ambulated with FWW outside of the room. No dizziness noted.
[2019-10-06 11:10] VITALS: BP 115/47
[2019-10-06 14:45] LABS: BASOPHILS % (AUTO) 0.5 % (0.0-2.0); EOSINOPHILS # (AUTO) 0.3 K/uL (0.0-0.7); EOSINOPHILS % (AUTO) 4.2 % (0.0-7.0); HEMOGLOBIN 10.3 g/dL (10.9-14.3); LYMPHOCYTES # (AUTO) 1.9 K/uL (20.0-40.0); LYMPHOCYTES % (AUTO) 22.5 % (20.5-51.5); MEAN CORPUSCULAR HEMOGLOBIN 28.3 uug (24.7-32.8); MEAN CORPUSCULAR HGB CONC 33 g/dL (32.3-35.6); MONOCYTES # (AUTO) 0.5 K/uL (2.0-10.0); MONOCYTES % (AUTO) 5.7 % (0.0-11.0); NEUTROPHILS # (AUTO) 5.6 K/uL (1.8-8.9); NEUTROPHILS % (AUTO) 67.1 % (38.5-71.5); PLATELET COUNT (AUTO) 185 K/uL (179-408); RED BLOOD CELL COUNT(AUTO) 3.65 MIL/uL (3.63-4.92); WHITE BLOOD COUNT (AUTO) 8.3 K/uL (3.8-11.8)
[2019-10-06] MEDS ORDERED: IV NS 1000 ML 1,000 ML IV ONE (14:45)
[2019-10-06 14:54] LABS: CREATININE 0.9 mg/dL (0.6-1.3); MAGNESIUM 1.9 mg/dL (1.8-2.4); PHOSPHOROUS 2.3 mg/dL (2.5-4.9); POTASSIUM 3.2 mmol/L (3.5-5.1)
[2019-10-06] MEDS ORDERED: NEUTRA PHOS PACKET PO ONE (15:15)
[2019-10-06] MEDS ORDERED: POTASSIUM CHLORIDE 20 MEQ POWDER PACKET GT ONE (15:15)
[2019-10-06 16:09] VITALS: BP 140/61
--- NOTE | 2019-10-06 17:00 | NUR ---
NS 1L bolus given as ordered. [facility] seen patient with daughter at bedside. Patient signed voluntarily for MHU. Merle Moreno informed.
--- NOTE | 2019-10-06 19:00 | NUR ---
Patient weaned off from O2 but O2 sat remained on 86% on room air. Merle Moreno informed and Alecia CRAMER of MHU informed, with instruction patient still on voluntary and may transfer once medically cleared. IS at bedside, instructed of use
--- NOTE | 2019-10-06 20:00 | NUR ---
RECEIVED PATIENT AWAKE IN BED. A/O X4. NO C/O PAIN AT THIS TIME. FEVER NOTED, 100.5, PATIENT GIVEN TYLENOL 650MG PO PRN. ALL OTHER VSS. IVF INFUSING WELL TO RIGHT LOWER FA #20 GAUGE. F/C INTACT AND PATENT, NOTED TO GRAVITY. PATIENT WAITING FOR PSYCH CONSULT VIA DR. TIM. CALL LIGHT IN REACH. ALL NEEDS ATTENDED. WILL CONTINUE TO MONITOR AND ASSES.
[2019-10-06 20:06] VITALS: BP 127/63
[2019-10-06] MEDS: ACETAMINOPHEN 325 MG TABLET PO PRN (20:18)
--- NOTE | 2019-10-06 20:30 | NUR ---
DR. TIM AT BEDSIDE TO ASSESS PATIENT. PER DR. TIM, PATIENT IS TO BE ADMITTED IN AM [facility]-PSYCH OVERFLOW, VOLUNTARY AND WEEKEND PSYCH DOCTOR TO ADMIT. MATERNAL FETAL PHYSICIAN NOTIFIED. ALL NEEDS ATTENDED. WILL CONTINUE TO MONITOR.
[2019-10-06] MEDS: CEFTRIAXONE 1 G in IV DEXTROSE 5% 50 ML IV SCH (20:44)
[2019-10-06] MEDS: FLUVOXAMINE MALEATE 50 MG TABLET PO SCH (20:51)
[2019-10-06] MEDS: LAMOTRIGINE 200 MG TABLET PO SCH (20:52)
[2019-10-06] MEDS ORDERED: LAMOTRIGINE 200 MG TABLET PO SCH (21:00)
[2019-10-07] MEDS: HYDROCODONE/APAP 5-325MG TABLET PO PRN ×4 (01:34→21:44)
[2019-10-07] MEDS: IV NS 1000 ML 1,000 ML IV PRN (01:53)
[2019-10-07 05:17] VITALS: BP 123/63
[2019-10-07 05:58] LABS: BASOPHILS # (AUTO) 0.1 K/uL (0.0-8.0); BASOPHILS % (AUTO) 1.2 % (0.0-2.0); EOSINOPHILS # (AUTO) 0.3 K/uL (0.0-0.7); EOSINOPHILS % (AUTO) 4.2 % (0.0-7.0); HEMATOCRIT 31.7 % (31.2-41.9); HEMOGLOBIN 10.5 g/dL (10.9-14.3); LYMPHOCYTES # (AUTO) 2.2 K/uL (20.0-40.0); LYMPHOCYTES % (AUTO) 28.5 % (20.5-51.5); MEAN CORPUSCULAR HEMOGLOBIN 28.2 uug (24.7-32.8); MEAN CORPUSCULAR HGB CONC 33 g/dL (32.3-35.6); MEAN CORPUSCULAR VOLUME 85.2 fL (75.5-95.3); MONOCYTES # (AUTO) 0.4 K/uL (2.0-10.0); MONOCYTES % (AUTO) 5.4 % (0.0-11.0); NEUTROPHILS # (AUTO) 4.7 K/uL (1.8-8.9); NEUTROPHILS % (AUTO) 60.7 % (38.5-71.5); PLATELET COUNT (AUTO) 196 K/uL (179-408); RED BLOOD CELL COUNT(AUTO) 3.71 MIL/uL (3.63-4.92); WHITE BLOOD COUNT (AUTO) 7.8 K/uL (3.8-11.8)
[2019-10-07] MEDS: PANTOPRAZOLE SODIUM 40 MG TABLET.DR PO SCH (06:13)
--- NOTE | 2019-10-07 06:25 | NUR ---
PATIENT RESTING IN BED. WOKE UP C/O PAIN ON RIGHT SIDE OF LOWER BACK, C/O SCIATICA PAIN, RADIATING DOWN. VSS. PATIENT GIVEN NORCO 1 TAB PO PRN FOR PAIN. ROBERT NOTIFIED LAST NIGHT THAT PATIENT WAS C/O OF THIS PAIN. HOT PACKS GIVEN TO ALSO HELP ALLEVIATE DISCOMFORT. CONTINUED ON O2 2L NC. NO RESP. DISTRESS NOTED. BED ALARM ON. CALL LIGHT IN REACH. ALL NEEDS ATTENDED. WILL CONTINUE TO MONITOR AND ASSESS.
[2019-10-07] MEDS: BLOOD SUGAR DIAGNOSTIC 1 EACH STRIP VI SCH (06:43)
[2019-10-07 06:57] LABS: CREATININE 0.6 mg/dL (0.6-1.3); MAGNESIUM 1.9 mg/dL (1.8-2.4); PHOSPHOROUS 2.8 mg/dL (2.5-4.9); POTASSIUM 3.6 mmol/L (3.5-5.1)
--- NOTE | 2019-10-07 07:42 | NUR ---
Awake, alert, oriented x 4, O2 at 2L/NC. IS at bedside, re instructed of use, able to reach 50 - 1000
[2019-10-07] MEDS: ESCITALOPRAM OXALATE 10 MG TABLET PO SCH (09:09)
[2019-10-07] MEDS: ARIPIPRAZOLE 5 MG TABLET PO SCH ×2 (09:09→16:58)
[2019-10-07 09:21] VITALS: BP 90/36
[2019-10-07 11:28] VITALS: BP 109/50
[2019-10-07] MEDS ORDERED: KETOROLAC TROMETHAMINE 15 MG INJ IVP PRN (11:45)
--- NOTE | 2019-10-07 12:00 | NUR ---
IVF discontinued. CXR done. Urinalysis collected, specimen sent to lab. Reyes catheter discontinued. O2 sat room air 88-89%. Placed back om O2 at 2L/NC. Assisted out of bed to the chair. IS reinstructed of use.
[2019-10-07] MEDS: CHLORHEXIDINE GLUCONATE 15 ML MOUTHWASH MM SCH ×3 (12:08→21:00)
[2019-10-07 15:07] VITALS: BP 108/45
--- NOTE | 2019-10-07 15:30 | NUR ---
Assisted to the bathroom, voided freely and with BM
[2019-10-07] MEDS ORDERED: FUROSEMIDE 40 MG/4 ML VIAL IV ONE (16:15)
[2019-10-07 16:33] LABS: *BILIRUBIN,URIN NEGATIVE (NEGATIVE); *BLOOD, URINE 3+ (NEGATIVE); *COLOR,URINE YELLOW (YELLOW); *KETONES,URINE NEGATIVE (NEGATIVE); LEUKOCYTE ESTERASE ,URINE 1+ (NEGATIVE); NITRITE, URINE NEGATIVE (NEGATIVE); PH,URINE 8.5 (5.0-8.0); UGLUCOSE NEGATIVE (NEGATIVE)
[2019-10-07 16:54] LABS: *CLARITY,URINE HAZY (CLEAR)
[2019-10-07 17:00] LABS: RBC,URINE 50-80 /HPF (0-3)
[2019-10-07] MEDS ORDERED: FUROSEMIDE 20 MG/2 ML VIAL IVP ONE (17:00)
--- NOTE | 2019-10-07 17:05 | NUR ---
Lasix 20 IV given for pulmonary congestion/small effusion. Eating dinner on the chair.
[2019-10-07 20:15] VITALS: BP 122/57
[2019-10-07] MEDS: CEFTRIAXONE 1 G in IV DEXTROSE 5% 50 ML IV SCH (20:49)
[2019-10-07] MEDS: LAMOTRIGINE 200 MG TABLET PO SCH (20:50)
[2019-10-07] MEDS: FLUVOXAMINE MALEATE 50 MG TABLET PO SCH (20:50)
[2019-10-07] MEDS: ZOLPIDEM 5 MG TABLET PO PRN (23:15)
[2019-10-08] MEDS: HYDROCODONE/APAP 5-325MG TABLET PO PRN ×2 (05:05→20:37)
[2019-10-08 05:22] VITALS: BP 123/74
--- NOTE | 2019-10-08 06:28 | NUR ---
Patient slept intermittently. PRN Carlton 5-325mg given x 2 this shift for R back and leg pain. IV access on RFA 20g intact and patent w/ saline flush. All needs attended. Will endorse accordingly
[2019-10-08] MEDS: PANTOPRAZOLE SODIUM 40 MG TABLET.DR PO SCH (06:39)
[2019-10-08 07:02] LABS: BASOPHILS % (AUTO) 0.6 % (0.0-2.0); EOSINOPHILS # (AUTO) 0.4 K/uL (0.0-0.7); EOSINOPHILS % (AUTO) 4.8 % (0.0-7.0); HEMATOCRIT 34.3 % (31.2-41.9); HEMOGLOBIN 11.2 g/dL (10.9-14.3); LYMPHOCYTES # (AUTO) 2.2 K/uL (20.0-40.0); LYMPHOCYTES % (AUTO) 28.4 % (20.5-51.5); MEAN CORPUSCULAR HEMOGLOBIN 27.9 uug (24.7-32.8); MEAN CORPUSCULAR HGB CONC 33 g/dL (32.3-35.6); MEAN CORPUSCULAR VOLUME 85.4 fL (75.5-95.3); MONOCYTES # (AUTO) 0.4 K/uL (2.0-10.0); NEUTROPHILS # (AUTO) 4.7 K/uL (1.8-8.9); NEUTROPHILS % (AUTO) 61.2 % (38.5-71.5); PLATELET COUNT (AUTO) 252 K/uL (179-408); RED BLOOD CELL COUNT(AUTO) 4.02 MIL/uL (3.63-4.92); WHITE BLOOD COUNT (AUTO) 7.6 K/uL (3.8-11.8)
[2019-10-08 07:03] LABS: CREATININE 0.9 mg/dL (0.6-1.3); MAGNESIUM 1.9 mg/dL (1.8-2.4); PHOSPHOROUS 3.8 mg/dL (2.5-4.9); POTASSIUM 3.4 mmol/L (3.5-5.1)
[2019-10-08] MEDS: CHLORHEXIDINE GLUCONATE 15 ML MOUTHWASH MM SCH ×2 (08:52→20:33)
[2019-10-08] MEDS: ARIPIPRAZOLE 5 MG TABLET PO SCH ×2 (08:52→17:33)
[2019-10-08] MEDS: ESCITALOPRAM OXALATE 10 MG TABLET PO SCH (08:53)
[2019-10-08] MEDS ORDERED: POTASSIUM CHLORIDE 20 MEQ TAB.PRT.SR PO ONE (09:30)
--- NOTE | 2019-10-08 09:55 | NUR ---
Pt A/O x4. No distress noted or reported. Pt removed supplemental O2 and stated that she does not need it right now. O2 Sat on Room air=95%. Pt denied any pain or discomfort at this time. Notified Merle Moreno NP re: pt's Potassium=3.4. All morning meds administered including Potassium 40 mEq per LUMBER SCALER orders. All safety precautions in place. Monitoring continued.
[2019-10-08 11:12] VITALS: BP 124/44
[2019-10-08 15:47] VITALS: BP 114/46
[2019-10-08] MEDS: CEFTRIAXONE 1 G in IV DEXTROSE 5% 50 ML IV SCH (20:33)
[2019-10-08] MEDS: FLUVOXAMINE MALEATE 50 MG TABLET PO SCH (20:33)
[2019-10-08] MEDS: LAMOTRIGINE 200 MG TABLET PO SCH (20:33)
[2019-10-08 20:39] VITALS: BP 135/51
[2019-10-09] MEDS: ACETAMINOPHEN 325 MG TABLET PO PRN (01:16)
[2019-10-09] MEDS: ZOLPIDEM 5 MG TABLET PO PRN (01:19)
--- NOTE | 2019-10-09 05:41 | NUR ---
Patient slept well. No complaints of pain at this time. No SOB noted. Heplock on L hand intact and patent w/ saline flush. All needs attended. Will endorse accordingly
[2019-10-09 05:44] VITALS: BP 127/55
[2019-10-09] MEDS: PANTOPRAZOLE SODIUM 40 MG TABLET.DR PO SCH (06:01)
[2019-10-09] MEDS: CHLORHEXIDINE GLUCONATE 15 ML MOUTHWASH MM SCH ×2 (08:25→20:28)
[2019-10-09] MEDS: ARIPIPRAZOLE 5 MG TABLET PO SCH ×2 (08:25→16:07)
[2019-10-09] MEDS: ESCITALOPRAM OXALATE 10 MG TABLET PO SCH (08:26)
[2019-10-09] MEDS: HYDROCODONE/APAP 5-325MG TABLET PO PRN (08:27)
[2019-10-09] MEDS: IBUPROFEN 400 MG TABLET PO PRN ×2 (11:44→20:28)
[2019-10-09 13:19] VITALS: BP 120/55
--- NOTE | 2019-10-09 13:31 | NUR ---
received patient Aox2-3, patient compliant with medication, heplock attached, flushed with good flow, patient verbalizing pain, pain meds given as ordered, will continue monitor
--- NOTE | 2019-10-09 14:42 | NUR ---
patient calm in her room, in no distress at this time
[2019-10-09 16:38] VITALS: BP 111/53
--- NOTE | 2019-10-09 17:27 | NUR ---
patient resting in her room, denies any pain , eating her dinner
[2019-10-09 20:12] VITALS: BP 129/65
[2019-10-09] MEDS: FLUVOXAMINE MALEATE 50 MG TABLET PO SCH (20:28)
[2019-10-09] MEDS: LAMOTRIGINE 200 MG TABLET PO SCH (20:28)
[2019-10-09] MEDS: CEFTRIAXONE 1 G in IV DEXTROSE 5% 50 ML IV SCH (20:58)
[2019-10-10] MEDS: ZOLPIDEM 5 MG TABLET PO PRN (00:25)
[2019-10-10] MEDS: ACETAMINOPHEN 325 MG TABLET PO PRN (00:25)
[2019-10-10] MEDS: IBUPROFEN 400 MG TABLET PO PRN ×2 (04:15→11:18)
[2019-10-10 04:28] VITALS: BP 112/55
[2019-10-10 04:31] VITALS: BP 112/55
[2019-10-10 06:33] LABS: BASOPHILS % (AUTO) 0.7 % (0.0-2.0); EOSINOPHILS # (AUTO) 0.3 K/uL (0.0-0.7); EOSINOPHILS % (AUTO) 4.8 % (0.0-7.0); HEMATOCRIT 34.7 % (31.2-41.9); HEMOGLOBIN 11.3 g/dL (10.9-14.3); LYMPHOCYTES % (AUTO) 29.5 % (20.5-51.5); MEAN CORPUSCULAR HEMOGLOBIN 27.9 uug (24.7-32.8); MEAN CORPUSCULAR HGB CONC 33 g/dL (32.3-35.6); MEAN CORPUSCULAR VOLUME 85.4 fL (75.5-95.3); MONOCYTES # (AUTO) 0.5 K/uL (2.0-10.0); MONOCYTES % (AUTO) 7.1 % (0.0-11.0); NEUTROPHILS % (AUTO) 57.9 % (38.5-71.5); PLATELET COUNT (AUTO) 286 K/uL (179-408); RED BLOOD CELL COUNT(AUTO) 4.07 MIL/uL (3.63-4.92); WHITE BLOOD COUNT (AUTO) 6.8 K/uL (3.8-11.8)
[2019-10-10 06:44] LABS: CREATININE 0.9 mg/dL (0.6-1.3); PHOSPHOROUS 3.9 mg/dL (2.5-4.9); POTASSIUM 4.4 mmol/L (3.5-5.1)
[2019-10-10] MEDS: PANTOPRAZOLE SODIUM 40 MG TABLET.DR PO SCH (07:00)
--- NOTE | 2019-10-10 07:53 | NUR ---
RECEIVED PT RESTING IN BED. NO ACUTE DISTRESS NOTED. NO SOB NOTED. PT DENIES PAIN AT THIS TIME. BED LOCKED AND IN LOW POSITION. CALL LIGHT WITHIN REACH. WILL CONTINUE TO MONITOR FOR SAFETY AND COMFORT.
[2019-10-10] MEDS: CHLORHEXIDINE GLUCONATE 15 ML MOUTHWASH MM SCH (08:57)
[2019-10-10] MEDS: ARIPIPRAZOLE 5 MG TABLET PO SCH (08:58)
[2019-10-10] MEDS: ESCITALOPRAM OXALATE 10 MG TABLET PO SCH (08:58)
[2019-10-10 13:34] VITALS: BP 122/52
--- NOTE | 2019-10-10 15:51 | NUR ---
PT HAS BEEN DISCHARGED. DISCHARGE ORDER RECEIVED FROM DESTIN NICOLAS. NO ACUTE DISTRESS OR SOB NOTED. PT DENIES PAIN. DISCHARGE INSTRUCTIONS GIVEN TO PT WITH GOOD UNDERSTANDING. IV LINE REMOVED INTACT. RX SENT ELECTRONICALLY PER GROUNDS FOREMAN TO PT'S PREFERRED PHARMACY. BELONGINGS LIST SIGNED. BELONGINGS AND VALUABLES RETURNED. PT HAS STEADY GAIT. PT ACCOMPANIED TO PRIVATE TRANSPORT BY AUNT AND STAFF.
== END 2019-10-10 15:45 | disposition home or self-care (01) | DRG 73 ==
LOC: ER 10:35 → TELE3 12:27 → MEDSURG3 10-06 15:45
PROVIDERS: ADMIT Hospitalist; ATTEND Hospitalist
DX: G90.8 Other disorders of autonomic nervous system (principal); G92 Toxic encephalopathy; I21.A1 Myocardial infarction type 2; I50.31 Acute diastolic (congestive) heart failure; R65.10 Systemic inflammatory response syndrome (SIRS) of non-infectious origin without acute organ dysfunction; J98.11 Atelectasis; F31.64 Bipolar disorder, current episode mixed, severe, with psychotic features; T43.225A Adverse effect of selective serotonin reuptake inhibitors, initial encounter; F31.9 Bipolar disorder, unspecified; E86.0 Dehydration; Y92.039 Unspecified place in apartment as the place of occurrence of the external cause; F42.9 Obsessive-compulsive disorder, unspecified; F41.9 Anxiety disorder, unspecified; I67.2 Cerebral atherosclerosis; G25.2 Other specified forms of tremor; G24.01 Drug induced subacute dyskinesia; T43.505A Adverse effect of unspecified antipsychotics and neuroleptics, initial encounter; Y92.89 Other specified places as the place of occurrence of the external cause; M54.31 Sciatica, right side
CPT/HCPCS: 36415; 70030-TC; 70450; 70496; 71045; 71250; 80307; 83605; 83735; 84100; 84443; 85025; 85610; 85730; 87086; 93005; 93307; A4217; A4663; C1758; G0378; J0696; J1885; J1940; J2060; J2405; J3360; J7030; J7050; J7060; J8597; Q9967

== ENCOUNTER 2024-07-11 11:36 | Inpatient (IN) | payer MEDICARE, OTHER ==
[~2024-07-11] VITALS: Ht 160 cm; Wt 77.1 kg
[~2024-07-11 11:36] MED LIST: ARIP5TAB10 PO; ESCI20TA PO; FLUV100T3 PO; LAMO200T2 PO
[2024-07-11] MEDS ORDERED: ACETAMINOPHEN 500 MG TABLET ONE (11:56)
[2024-07-11] MEDS ORDERED: LIDOCAINE HCL 1% 20 ML VIAL ONE (11:56)
[2024-07-11] MEDS ORDERED: NEOMY/BACITRA/POLYMYXIN B OINT UD PACKET TP ONE (11:56)
[2024-07-11] MEDS ORDERED: TDAP DIPH,PERTUSS,TET VAC/PF 0.5 ML DISP.SYRIN IM ONE (11:57)
[2024-07-11] MEDS: ACETAMINOPHEN 500 MG TABLET PO ONE (12:01)
[2024-07-11] MEDS: TDAP DIPH,PERTUSS,TET VAC/PF 0.5 ML DISP.SYRIN IM ONE (12:07)
[2024-07-11 12:34] LABS: CALCIUM 9.5 mg/dL (8.5-10.1); CARBON DIOXIDE 29 mmol/L (21-32); CHLORIDE 105 mmol/L (98-107); CREATININE 0.9 mg/dL (0.6-1.3); GLUCOSE 98 mg/dL (74-106); POTASSIUM 4.2 mmol/L (3.5-5.1); SODIUM SERUM 144 mmol/L (136-145); UREA NITROGEN, BLOOD 17 mg/dL (7-18)
[2024-07-11] MEDS: LIDOCAINE HCL 1% 20 ML VIAL IJ ONE (12:43)
[2024-07-11] MEDS: NEOMY/BACITRA/POLYMYXIN B OINT UD PACKET TP ONE (12:44)
[2024-07-11 13:06] LABS: BASOPHILS # (AUTO) 0.2 K/UL (0.0-0.2); BASOPHILS % (AUTO) 2.7 % (0.0-2.0); DIFFERENTIAL COMMENT 0; EOSINOPHILS # (AUTO) 0.2 K/uL (0.0-0.7); HEMATOCRIT 35.4 % (31.2-41.9); HEMOGLOBIN 11.5 g/dL (10.9-14.3); LYMPHOCYTES # (AUTO) 1.6 K/uL (0.8-4.8); LYMPHOCYTES % (AUTO) 17.7 % (20.5-51.5); MEAN CORPUSCULAR HEMOGLOBIN 27.4 uug (24.7-32.8); MEAN CORPUSCULAR HGB CONC 33 g/dL (32.3-35.6); MEAN CORPUSCULAR VOLUME 84.4 fL (75.5-95.3); MONOCYTES # (AUTO) 0.2 K/uL (0.1-1.30); MONOCYTES % (AUTO) 2.2 % (0.0-11.0); NEUTROPHILS # (AUTO) 6.9 K/uL (1.8-8.9); NEUTROPHILS % (AUTO) 75.4 % (38.5-71.5); PLATELET COUNT (AUTO) 227 K/uL (179-408); RED BLOOD CELL COUNT(AUTO) 4.19 MIL/uL (3.63-4.92); RED CELL DISTRIBUTION WIDTH 13.9 % (12.3-17.7); WHITE BLOOD COUNT (AUTO) 9.1 K/uL (3.8-11.8)
[2024-07-11] MEDS ORDERED: IOHEXOL 300MG/ML 100 ML INFUS..BTL ONE (13:14)
[2024-07-11] MEDS ORDERED: IV NORMAL SALINE 250 ML IV ONE (13:14)
[2024-07-11] MEDS ORDERED: SWABABLE VALVE TRANSFER SET EA MC ONE (13:14)
[2024-07-11] MEDS ORDERED: MINO2.5T PO (15:07)
[2024-07-11] MEDS ORDERED: PROP10TA68 PO (15:07)
[2024-07-11] MEDS ORDERED: LORA0.5T48 PO (15:07)
[2024-07-11] MEDS ORDERED: DONE5TAB34 PO (15:07)
[2024-07-11] MEDS ORDERED: BREX4TAB PO (15:07)
[2024-07-11] MEDS: levETIRAcetam IV 500 MG in IV DEXTROSE 5% 100 ML IV ONE (15:18)
[2024-07-11] MEDS ORDERED: ONDANSETRON 4 MG/2 ML VIAL IV PRN (16:30)
[2024-07-11] MEDS ORDERED: ACETAMINOPHEN 325 MG TABLET PO PRN (16:30)
[2024-07-11] MEDS ORDERED: REMEDY ESSENTIAL ZINC PASTE 113 GM TP PRN (16:30)
[2024-07-11] MEDS ORDERED: levETIRAcetam 250 MG TABLET ONE (19:36)
[2024-07-11] MEDS ORDERED: ARIPIPRAZOLE 5 MG TABLET ONE (19:37)
[2024-07-11] MEDS: ARIPIPRAZOLE 5 MG TABLET PO SCH (19:41)
[2024-07-11] MEDS: levETIRAcetam 250 MG TABLET PO SCH (19:41)
[2024-07-11 21:00] VITALS: BP 108/44; TEMP 98.1; O2SAT 92
[2024-07-11] MEDS: LAMOTRIGINE 200 MG TABLET GT SCH (21:00)
[2024-07-11 22:00] VITALS: BP 122/47; O2SAT 93
[2024-07-11 22:30] VITALS: BP 113/51; TEMP 97; O2SAT 92
[2024-07-11 23:00] VITALS: BP 108/50; O2SAT 95
[2024-07-11] MEDS: IV NS 1000 ML 1,000 ML IV PRN (23:22)
[2024-07-11 23:30] VITALS: BP 127/48; O2SAT 94
[2024-07-12] VITALS (19 sets, daily range): BP systolic 91–129; BP diastolic 41–66; TEMP 97.3–98.5; O2SAT 94–97
[2024-07-12 05:09] LABS: BASOPHILS % (AUTO) 0.7 % (0.0-2.0); EOSINOPHILS # (AUTO) 0.3 K/uL (0.0-0.7); EOSINOPHILS % (AUTO) 5.2 % (0.0-7.0); HEMATOCRIT 32.3 % (31.2-41.9); HEMOGLOBIN 10.6 g/dL (10.9-14.3); LYMPHOCYTES % (AUTO) 31.1 % (20.5-51.5); MEAN CORPUSCULAR HEMOGLOBIN 27.7 uug (24.7-32.8); MEAN CORPUSCULAR HGB CONC 33 g/dL (32.3-35.6); MEAN CORPUSCULAR VOLUME 84.1 fL (75.5-95.3); MONOCYTES # (AUTO) 0.4 K/uL (0.1-1.30); MONOCYTES % (AUTO) 6.8 % (0.0-11.0); NEUTROPHILS # (AUTO) 3.6 K/uL (1.8-8.9); NEUTROPHILS % (AUTO) 56.2 % (38.5-71.5); PLATELET COUNT (AUTO) 191 K/uL (179-408); RED BLOOD CELL COUNT(AUTO) 3.84 MIL/uL (3.63-4.92); RED CELL DISTRIBUTION WIDTH 13.7 % (12.3-17.7); WHITE BLOOD COUNT (AUTO) 6.5 K/uL (3.8-11.8)
[2024-07-12 05:36] LABS: CALCIUM 8.1 mg/dL (8.5-10.1); CARBON DIOXIDE 31 mmol/L (21-32); CHLORIDE 107 mmol/L (98-107); CREATININE 0.9 mg/dL (0.6-1.3); GLUCOSE 102 mg/dL (74-106); PHOSPHOROUS 2.9 mg/dL (2.5-4.9); POTASSIUM 4.1 mmol/L (3.5-5.1); SODIUM SERUM 142 mmol/L (136-145); UREA NITROGEN, BLOOD 17 mg/dL (7-18)
[2024-07-12] MEDS: PANTOPRAZOLE SODIUM 40 MG TABLET.DR PO SCH (06:09)
[2024-07-12] MEDS ORDERED: ESCITALOPRAM OXALATE 10 MG TABLET PO SCH (09:00)
[2024-07-12] MEDS ORDERED: BENZ0.5T43 PO (09:35)
[2024-07-12] MEDS ORDERED: FLUV100T3 PO (09:35)
[2024-07-12] MEDS: FLUOXETINE HCL 20 MG CAPSULE PO SCH (10:10)
[2024-07-12] MEDS: BENZTROPINE MESYLATE 0.5 MG TABLET PO SCH (10:11)
[2024-07-12] MEDS: MINOXIDIL 2.5 MG TABLET PO SCH (10:12)
[2024-07-12] MEDS: DONEPEZIL 5 MG TABLET PO SCH (10:13)
[2024-07-12] MEDS: levETIRAcetam 500 MG TABLET PO SCH (10:15)
[2024-07-13] VITALS: BP 118/40; TEMP 98.2; O2SAT 97
[2024-07-13 04:00] VITALS: BP 134/52; TEMP 97.9; O2SAT 95
[2024-07-13 07:52] VITALS: BP 113/49; TEMP 98.4; O2SAT 93
[2024-07-13] MEDS ORDERED: LEVE250T2 PO (11:11)
[2024-07-13 11:25] VITALS: BP 129/56; TEMP 98.2; O2SAT 98
[2024-07-13 19:47] VITALS: BP 130/56; TEMP 97.9; O2SAT 95
== END 2024-07-13 12:50 | disposition home or self-care (01) | DRG 84 ==
LOC: ER 11:36 → CCU 20:38 → TELE3 07-12 21:19
PROVIDERS: ADMIT Nurse Practitioner Acute Care; ATTEND Nurse Practitioner Acute Care
PROC: 0HQ1XZZ Repair Face Skin, External Approach (ICD-10-PCS; principal; 2024-07-11)
DX: S06.5XAA Traumatic subdural hemorrhage with loss of consciousness status unknown, initial encounter (principal); S06.4XAA Epidural hemorrhage with loss of consciousness status unknown, initial encounter; S01.81XA Laceration without foreign body of other part of head, initial encounter; R40.2142 Coma scale, eyes open, spontaneous, at arrival to emergency department; R40.2252 Coma scale, best verbal response, oriented, at arrival to emergency department; R40.2362 Coma scale, best motor response, obeys commands, at arrival to emergency department; W01.198A Fall on same level from slipping, tripping and stumbling with subsequent striking against other object, initial encounter; Y92.031 Bathroom in apartment as the place of occurrence of the external cause; F31.9 Bipolar disorder, unspecified; S80.212A Abrasion, left knee, initial encounter; S93.402A Sprain of unspecified ligament of left ankle, initial encounter; F42.9 Obsessive-compulsive disorder, unspecified; Z88.0 Allergy status to penicillin; K80.20 Calculus of gallbladder without cholecystitis without obstruction; S50.01XA Contusion of right elbow, initial encounter; M50.30 Other cervical disc degeneration, unspecified cervical region; F41.9 Anxiety disorder, unspecified; K57.30 Diverticulosis of large intestine without perforation or abscess without bleeding; S01.01XA Laceration without foreign body of scalp, initial encounter; Z85.3 Personal history of malignant neoplasm of breast; Z87.891 Personal history of nicotine dependence; Z79.899 Other long term (current) drug therapy; M17.12 Unilateral primary osteoarthritis, left knee
CPT/HCPCS: 36415; 70450; 71260; 72125; 73080; 73610; 83735; 84100; 85025; 85730; 90715; A4606; A4663; A9150; G0378; J1953; J3490; J7040; Q9967

== ENCOUNTER 2024-07-19 11:48 | Emergency (ER) | payer MEDICARE, OTHER ==
[~2024-07-19] VITALS: Ht 160 cm; Wt 77.1 kg
[~2024-07-19 11:48] MED LIST changes: -ARIP5TAB10 PO; +BENZ0.5T43 PO; +BREX4TAB PO; +DONE5TAB34 PO; +LEVE250T2 PO; +LORA0.5T48 PO; +MINO2.5T PO
[2024-07-19 12:57] VITALS: BP 134/87; O2SAT 97
== END 2024-07-19 12:58 | disposition home or self-care (01) ==
LOC: ER 11:48
DX: S01.81XD Laceration without foreign body of other part of head, subsequent encounter (principal); F41.9 Anxiety disorder, unspecified; F42.9 Obsessive-compulsive disorder, unspecified; F31.9 Bipolar disorder, unspecified; Z48.02 Encounter for removal of sutures; Z79.899 Other long term (current) drug therapy; Z88.0 Allergy status to penicillin; Z60.2 Problems related to living alone; X58.XXXD Exposure to other specified factors, subsequent encounter
CPT/HCPCS: A4606; A4663

== ENCOUNTER 2024-12-20 13:53 | Inpatient (IN) | payer MEDICARE, OTHER ==
[~2024-12-20] VITALS: Ht 160 cm; Wt 81.6 kg
[2024-12-20 14:37] LABS: BASOPHILS # (AUTO) 0.1 K/UL (0.0-0.2); BASOPHILS % (AUTO) 1.1 % (0.0-2.0); EOSINOPHILS # (AUTO) 0.2 K/uL (0.0-0.7); EOSINOPHILS % (AUTO) 2.5 % (0.0-7.0); HEMATOCRIT 36.2 % (31.2-41.9); HEMOGLOBIN 11.8 g/dL (10.9-14.3); LYMPHOCYTES # (AUTO) 1.8 K/uL (0.8-4.8); LYMPHOCYTES % (AUTO) 23.6 % (20.5-51.5); MEAN CORPUSCULAR HEMOGLOBIN 26.9 uug (24.7-32.8); MEAN CORPUSCULAR HGB CONC 33 g/dL (32.3-35.6); MEAN CORPUSCULAR VOLUME 82.5 fL (75.5-95.3); MONOCYTES # (AUTO) 0.5 K/uL (0.1-1.30); MONOCYTES % (AUTO) 6.5 % (0.0-11.0); NEUTROPHILS # (AUTO) 5.1 K/uL (1.8-8.9); NEUTROPHILS % (AUTO) 66.3 % (38.5-71.5); PLATELET COUNT (AUTO) 257 K/uL (179-408); RED BLOOD CELL COUNT(AUTO) 4.38 MIL/uL (3.63-4.92); RED CELL DISTRIBUTION WIDTH 14.6 % (12.3-17.7); WHITE BLOOD COUNT (AUTO) 7.7 K/uL (3.8-11.8)
[2024-12-20 14:44] LABS: DIFFERENTIAL COMMENT 1
[2024-12-20 14:45] LABS: CALCIUM 10.3 mg/dL (8.5-10.1); CARBON DIOXIDE 31 mmol/L (21-32); CHLORIDE 103 mmol/L (98-107); GLUCOSE 110 mg/dL (74-106); POTASSIUM 4.1 mmol/L (3.5-5.1); SODIUM SERUM 141 mmol/L (136-145); UREA NITROGEN, BLOOD 21 mg/dL (7-18)
[2024-12-20 14:50] LABS: ALANINE AMINOTRANSFERASE 25 U/L (14-59); ALBUMIN 3.7 g/dL (3.4-5.0); ALKALINE PHOSPHATASE 123 U/L (50-136); ASPARTATE AMINOTRANSFERASE 23 U/L (15-37); BILIRUBIN,DIRECT 0.2 mg/dL (0.0-0.2); BILIRUBIN,TOTAL 0.4 mg/dL (0.2-1.0); TOTAL PROTEIN, SERUM 7.6 g/dL (6.4-8.2)
[2024-12-20 14:54] LABS: ACETAMINOPHEN < 2.0 ug/mL (10-30)
[2024-12-20 14:58] LABS: THYROID STIMULATING HORMONE 2.407 mIU/mL (0.358-3.740)
[2024-12-20 14:59] LABS: AMMONIA 13 umol/L (11-32)
[2024-12-20 15:08] LABS: ETHANOL < 3 MG/DL (0-10)
[2024-12-20] MEDS ORDERED: SWABABLE VALVE TRANSFER SET EA MC ONE (15:42)
[2024-12-20] MEDS ORDERED: IV NORMAL SALINE 250 ML IV ONE (15:42)
[2024-12-20] MEDS ORDERED: IOHEXOL 350 100 ML INFUS..BTL ONE (15:42)
[2024-12-20 16:30] LABS: *BILIRUBIN,URIN NEGATIVE (NEGATIVE); *BLOOD, URINE NEGATIVE (NEGATIVE); *CLARITY,URINE CLEAR (CLEAR); *COLOR,URINE YELLOW (YELLOW); *KETONES,URINE NEGATIVE (NEGATIVE); *PROTEIN,URINE NEGATIVE (NEGATIVE); *UROBILINOGEN,URINE 0.2 E.U./dl (NORMAL); LEUKOCYTE ESTERASE ,URINE NEGATIVE (NEGATIVE); NITRITE, URINE NEGATIVE (NEGATIVE); UGLUCOSE NEGATIVE (NEGATIVE)
[2024-12-20] MEDS ORDERED: ONDANSETRON 4 MG/2 ML VIAL IV PRN (16:30)
[2024-12-20] MEDS ORDERED: ACETAMINOPHEN 325 MG TABLET PO PRN (16:30)
[2024-12-20] MEDS ORDERED: REMEDY ESSENTIAL ZINC PASTE 113 GM TP PRN (16:30)
[2024-12-20 16:43] LABS: *AMPHETAMINE, URINE NEGATIVE (NEGATIVE); *BARBITURATE, URINE NEGATIVE (NEGATIVE); *BENZODIAZEPINE, URINE NEGATIVE (NEGATIVE); *CANNABINOID, URINE NEGATIVE (NEGATIVE); *COCCAINE, URINE NEGATIVE (NEGATIVE); *OPIATE, URINE NEGATIVE (NEGATIVE); *PHENCYCLIDINE SCREEN,URINE NEGATIVE (NEGATIVE); FENTANYL, URINE NEGATIVE (NEGATIVE)
[2024-12-20 18:04] VITALS: BP 139/48; TEMP 98.1; O2SAT 95
[2024-12-20] MEDS ORDERED: LORAZEPAM 0.5 MG TABLET PO PRN (18:45)
[2024-12-20] MEDS: BENZTROPINE MESYLATE 0.5 MG TABLET PO SCH (19:00)
[2024-12-20] MEDS: levETIRAcetam 250 MG TABLET PO SCH (20:37)
[2024-12-20] MEDS: LAMOTRIGINE 200 MG TABLET PO SCH (21:00)
[2024-12-20] MEDS: IV NS 1000 ML 1,000 ML IV PRN (21:16)
[2024-12-20] MEDS: LAMOTRIGINE 100 MG TABLET PO ONE (21:21)
[2024-12-20 21:33] VITALS: BP 135/52; TEMP 98.1; O2SAT 93
[2024-12-21 06:36] VITALS: BP 126/34; TEMP 98.7; O2SAT 90
[2024-12-21 06:48] LABS: BASOPHILS % (AUTO) 0.8 % (0.0-2.0); EOSINOPHILS # (AUTO) 0.2 K/uL (0.0-0.7); EOSINOPHILS % (AUTO) 4.3 % (0.0-7.0); HEMATOCRIT 32.8 % (31.2-41.9); HEMOGLOBIN 10.7 g/dL (10.9-14.3); LYMPHOCYTES # (AUTO) 1.5 K/uL (0.8-4.8); MEAN CORPUSCULAR HEMOGLOBIN 27.1 uug (24.7-32.8); MEAN CORPUSCULAR HGB CONC 33 g/dL (32.3-35.6); MEAN CORPUSCULAR VOLUME 83.2 fL (75.5-95.3); MONOCYTES # (AUTO) 0.4 K/uL (0.1-1.30); MONOCYTES % (AUTO) 6.6 % (0.0-11.0); NEUTROPHILS # (AUTO) 3.5 K/uL (1.8-8.9); NEUTROPHILS % (AUTO) 61.3 % (38.5-71.5); PLATELET COUNT (AUTO) 221 K/uL (179-408); RED BLOOD CELL COUNT(AUTO) 3.94 MIL/uL (3.63-4.92); RED CELL DISTRIBUTION WIDTH 14.1 % (12.3-17.7); WHITE BLOOD COUNT (AUTO) 5.7 K/uL (3.8-11.8)
[2024-12-21 07:09] LABS: DIFFERENTIAL COMMENT 1
[2024-12-21 07:13] LABS: CALCIUM 8.6 mg/dL (8.5-10.1); CARBON DIOXIDE 31 mmol/L (21-32); CHLORIDE 107 mmol/L (98-107); CREATININE 0.8 mg/dL (0.6-1.3); GLUCOSE 96 mg/dL (74-106); MAGNESIUM 2.2 mg/dL (1.8-2.4); PHOSPHOROUS 2.7 mg/dL (2.5-4.9); POTASSIUM 4.1 mmol/L (3.5-5.1); SODIUM SERUM 143 mmol/L (136-145); UREA NITROGEN, BLOOD 14 mg/dL (7-18)
[2024-12-21 07:44] VITALS: BP 126/44; TEMP 98.4; O2SAT 95
[2024-12-21] MEDS: MINOXIDIL 2.5 MG TABLET PO SCH (08:33)
[2024-12-21] MEDS ORDERED: levETIRAcetam 250 MG TABLET PO SCH (09:00)
[2024-12-21] MEDS ORDERED: BREXPIPRAZOLE PO SCH (09:00)
[2024-12-21] MEDS ORDERED: ESCITALOPRAM OXALATE 10 MG TABLET PO SCH ×2 (09:00)
[2024-12-21] MEDS ORDERED: BENZTROPINE MESYLATE 0.5 MG TABLET PO SCH (09:00)
[2024-12-21] MEDS ORDERED: FLUVOXAMINE MALEATE 50 MG TABLET PO SCH (09:00)
[2024-12-21] MEDS ORDERED: DONEPEZIL 5 MG TABLET PO SCH (09:00)
[2024-12-21] MEDS ORDERED: OLANZAPINE 5 MG TABLET PO PRN (09:15)
[2024-12-21 10:31] VITALS: BP 114/62; TEMP 98.4; O2SAT 96
[2024-12-21] MEDS: FLUVOXAMINE MALEATE 50 MG TABLET PO SCH (10:36)
[2024-12-21] MEDS: DONEPEZIL 5 MG TABLET PO SCH (14:09)
[2024-12-21 14:43] VITALS: BP 125/62; TEMP 98.7; O2SAT 97
[2024-12-21 18:47] LABS: THYROID STIMULATING HORMONE 1.694 mIU/mL (0.358-3.740)
[2024-12-21 19:15] VITALS: BP 99/38; TEMP 97.5; O2SAT 97
[2024-12-21 23:15] VITALS: BP 111/35; TEMP 98; O2SAT 93
[2024-12-22 05:17] VITALS: BP 125/53; TEMP 98.3; O2SAT 94
[2024-12-22 08:05] VITALS: BP 109/42; TEMP 97.7; O2SAT 95
[2024-12-22 11:59] VITALS: BP 117/52; TEMP 98.1; O2SAT 97
[2024-12-22 16:01] VITALS: BP 127/67; TEMP 97.9; O2SAT 95
== END 2024-12-22 17:50 | disposition home or self-care (01) | DRG 92 ==
LOC: ER 13:53 → TELE3 17:29 → MEDSURG3 12-22 10:25
PROVIDERS: ADMIT Nurse Practitioner Acute Care; ATTEND Nurse Practitioner Acute Care
DX: R26.89 Other abnormalities of gait and mobility (principal); T50.915A Adverse effect of multiple unspecified drugs, medicaments and biological substances, initial encounter; F02.84 Dementia in other diseases classified elsewhere, unspecified severity, with anxiety; F03.94 Unspecified dementia, unspecified severity, with anxiety; F31.64 Bipolar disorder, current episode mixed, severe, with psychotic features; R09.02 Hypoxemia; Y92.039 Unspecified place in apartment as the place of occurrence of the external cause; Z87.820 Personal history of traumatic brain injury; F42.9 Obsessive-compulsive disorder, unspecified; R29.6 Repeated falls; I25.10 Atherosclerotic heart disease of native coronary artery without angina pectoris; Z88.0 Allergy status to penicillin; I65.22 Occlusion and stenosis of left carotid artery; Z79.899 Other long term (current) drug therapy; Z91.81 History of falling; S50.12XA Contusion of left forearm, initial encounter; W19.XXXA Unspecified fall, initial encounter
CPT/HCPCS: 36415; 70450; 71045; 71275; 72125; 73090; 83605; 83735; 83921; 84100; 84443; 84484; 85025; 85730; 87040; 87086; 93307; 93880; G0378; G0480; J7040; Q9967